=== PATIENT | male | born 1975 | race Two or more races ===

== ENCOUNTER 2020-04-01 14:28 | Emergency (ER) | payer BC, OTHER ==
[~2020-04-01] VITALS: Ht 170.2 cm; Wt 77.1 kg
[2020-04-01 14:30] VITALS: BP 113/69
[2020-04-01] MEDS ORDERED: HYDROcodone-ACET 5/325MG TAB PO ONE (16:45)
== END 2020-04-01 17:03 | disposition home or self-care (01) ==
LOC: ER 14:28
DX: Z76.0 Encounter for issue of repeat prescription (principal); Z48.01 Encounter for change or removal of surgical wound dressing